=== PATIENT | female | born 1950 | race African-American/Black ===

== ENCOUNTER 2023-02-08 02:04 | Day surgery (SDC) | payer MEDICARE, SELFPAY ==
[2023-01-31 11:05] VITALS: BMI 24.8
--- NOTE | 2023-02-07 13:48 | PM.HPGS ---
History of Present Illness History of Present Illness Consent: Risks, benefits, and alternatives have been discussed and questions answered. Patient agrees to proceed with procedure. Chief complaint: disease of anus and rectum Narrative: Joshua Coronado is a 72 year old female Was referred for colonoscopy due to a possible anal mass. She also had a change in bowel habits with severe constipation lately. COUNTS INCLUDE 234 BEDS AT THE [facility] Family History Family History Mother Diabetes mellitus Depression Social History Social History Smoking status: Unknown if ever smoked Alcohol intake: current Alcohol use details: social Substance use: never Spiritual care concerns: No Meds Home Medications and Allergies Home Medications Medication Instructions Recorded Confirmed Type alendronate 70 mg tablet 70 mg PO WEEKLY 01/02/23 01/31/23 History aspirin 81 mg tablet,delayed 81 mg PO DAILY 01/02/23 01/31/23 History release cholecalciferol (vitamin D3) 25 25 mcg PO DAILY 01/02/23 01/31/23 History mcg (1,000 unit) capsule hydrochlorothiazide 25 mg tablet 25 mg PO DAILY 01/02/23 01/31/23 History losartan 100 mg tablet 100 mg PO DAILY 01/02/23 01/31/23 History metformin 500 mg tablet 500 mg PO DAILY 01/02/23 01/31/23 History naproxen 500 mg tablet 500 mg PO .PRN 01/02/23 01/31/23 History pravastatin 20 mg tablet 20 mg PO DAILY 01/02/23 01/31/23 History valacyclovir 1 gram tablet 1,000 mg PO DAILY 01/02/23 01/31/23 History Allergies Allergy/AdvReac Type Severity Reaction Status Date / Time No Known Allergies Allergy Verified 01/31/23 11:01 Assessment and Plan Assessment and plan (1) Anal lesion: Code(s): K62.9 - Disease of anus and rectum, unspecified Status: Acute Assessment and Plan: Colonoscopy with possible biopsy or polypectomy or cautery or injection of substances. (2) Personal history of colonic polyps: Code(s): Z86.010 - Personal history of colonic polyps Status: Acute
[2023-02-08 08:55] VITALS: BP 140/73; PULSE 65; RESP 18; TEMP 36.3; O2SAT 100
--- NOTE | 2023-02-08 08:56 | SUR.PREOP ---
0845: PT STATES SHE HAD [employer] CHOPS AT 6PM ON 02/07/23 THEN BEGAN THE BOWEL PREP. STOOLS ARE SEMI LIQUID, SEMI SOFT, AND BROWN. DR DODGE NOTIFIED AND CANCELLED PROCEDURE. PT DISCHARGED AND NOTIFIED TO RESCHEDULE PROCEDURE THROUGH DR DODGE'S OFFICE.
== END 2023-02-08 08:50 | disposition home or self-care (01) ==
PROVIDERS: Visit Provider Internal Medicine Gastroenterology
PROC: 0DJD8ZZ Inspection of Lower Intestinal Tract, Via Natural or Artificial Opening Endoscopic (ICD-10-PCS; CPT 45378; principal; 2023-02-08 09:45)
DX: K62.89 Other specified diseases of anus and rectum (principal); Z53.09 Procedure and treatment not carried out because of other contraindication
CPT/HCPCS: 99211; G0463

== ENCOUNTER 2023-02-21 02:41 | Day surgery (SDC) | payer MEDICARE, SELFPAY ==
[2023-02-09 14:58] VITALS: BMI 24.1
[2023-02-21 12:17] VITALS: BP 137/64; PULSE 70; RESP 16; TEMP 36.2; O2SAT 100; BMI 23.2
[2023-02-21] MEDS: LACTATED RINGERS 1,000 ML 150 ML IV CONT (12:31)
[2023-02-21 12:32] LABS: Glucose Point of Care 85 mg/dl (65-105)
--- NOTE | 2023-02-21 13:21 | P.HP_ITS ---
History of Present Illness History of Present Illness Consent: Risks, benefits, and alternatives have been discussed and questions answered. Patient agrees to proceed with procedure. Chief complaint: disease of anus and rectum Narrative: Joshua Coronado is a 72 year old female who was referred by her semiconductor packages leak tester because of the concern about prolapsing hemorrhoids versus possible anal mass. She has noted for least a year so that she would have a protrusion from her anus particularly after bowel movement.? Eventually would seem to go down.? She is not aware that she has hemorrhoids.? She denies seeing blood after bowel movement except on a rare occasion there might be a spot of blood on tissue.? She has had issues with constipation.? In the past she would be forced to strain at times. Review of Systems Review of Systems: All systems reviewed & are unremarkable except as noted in HPI and below PMFSH Family History Family History Mother Diabetes mellitus Depression Social History Social History Smoking status: Unknown if ever smoked Alcohol intake: current Alcohol use details: social Substance use: never Spiritual care concerns: No Meds Home Medications and Allergies Home Medications Medication Instructions Recorded Confirmed Type alendronate 70 mg tablet 70 mg PO WEEKLY 01/02/23 02/21/23 History aspirin 81 mg tablet,delayed 81 mg PO DAILY 01/02/23 02/21/23 History release cholecalciferol (vitamin D3) 25 25 mcg PO DAILY 01/02/23 02/21/23 History mcg (1,000 unit) capsule hydrochlorothiazide 25 mg tablet 25 mg PO DAILY 01/02/23 02/21/23 History losartan 100 mg tablet 100 mg PO DAILY 01/02/23 02/21/23 History metformin 500 mg tablet 500 mg PO DAILY 01/02/23 02/21/23 History naproxen 500 mg tablet 500 mg PO .PRN 01/02/23 02/21/23 History pravastatin 20 mg tablet 20 mg PO DAILY 01/02/23 02/21/23 History valacyclovir 1 gram tablet 1,000 mg PO DAILY 01/02/23 02/21/23 History Allergies Allergy/AdvReac Type Severity Reaction Status Date / Time No Known Allergies Allergy Verified 02/21/23 12:16 Vital Signs Vital Signs - 24 hr 02/21/23 12:17 Temperature 36.2 C L Pulse Rate 70 Respiratory Rate 16 Blood Pressure 137/64 Pulse Oximetry 100 Oxygen Delivery Room Air Exam Const: General: alert Orientation/consciousness: patient oriented x3 Resp: Auscultation: clear to auscultation bilaterally Cardio: Rhythm: regular rhythm GI: GI Palp: Yes Soft to palpation and No Tenderness to palpation present (GI) Neuro: General: patient oriented x3 Assessment and Plan Assessment and plan (1) Personal history of colonic polyps: Code(s): Z86.010 - Personal history of colonic polyps Status: Acute Assessment and Plan: Colonoscopy with possible biopsy or polypectomy or cautery or injection of substances. (2) Anal lesion: Code(s): K62.9 - Disease of anus and rectum, unspecified Status: Acute
--- NOTE | 2023-02-21 13:30 | WPDANESEPPF ---
Anes - Initial Pre Proc Eval Procedure: Operation Date: 02/21/23 13:30 Proposed Procedures p Colonoscopy - Del Moulton MD Date/Time: 02/21/23 13:30 Surgeon: Del Moulton MD Pre Op Diagnosis: disease of anus and rectum Patient Data Age: 72 Gender: F Height: 1.7 m Weight: 67.2 kg Last Vital Signs Temp 97.1 F L 02/21/23 12:17 Pulse 70 02/21/23 12:17 Resp 16 02/21/23 12:17 BP 137/64 02/21/23 12:17 Pulse Ox 100 02/21/23 12:17 O2 Del Method Room Air 02/21/23 12:17 Allergies Allergy/AdvReac Type Severity Reaction Status Date / Time No Known Allergies Allergy Verified 02/21/23 12:16 Home Medications Medication Instructions Recorded Confirmed Type alendronate 70 mg tablet 70 mg PO WEEKLY 01/02/23 02/21/23 History aspirin 81 mg tablet,delayed 81 mg PO DAILY 01/02/23 02/21/23 History release cholecalciferol (vitamin D3) 25 25 mcg PO DAILY 01/02/23 02/21/23 History mcg (1,000 unit) capsule hydrochlorothiazide 25 mg tablet 25 mg PO DAILY 01/02/23 02/21/23 History losartan 100 mg tablet 100 mg PO DAILY 01/02/23 02/21/23 History metformin 500 mg tablet 500 mg PO DAILY 01/02/23 02/21/23 History naproxen 500 mg tablet 500 mg PO .PRN 01/02/23 02/21/23 History pravastatin 20 mg tablet 20 mg PO DAILY 01/02/23 02/21/23 History valacyclovir 1 gram tablet 1,000 mg PO DAILY 01/02/23 02/21/23 History Laboratory Tests 02/21/23 12:24 POC Capillary Glucose 85 mg/dl (65-105) Patient hx anesthesia problems: none Family hx anesthesia problems: none Results Review: All pre-operative results and documents have been reviewed as part of the pre-operative evaluation. [facility] [place] Family History Family History Mother Diabetes mellitus Depression Social History Social History Smoking status: Unknown if ever smoked Alcohol intake: current Alcohol use details: social Substance use: never Spiritual care concerns: No Anes - Eval Final PreProcedure Day of Procedure 02/21/23 13:30 Patient weight: normal Heart: regular rate and rhythm Lungs: clear to auscultation Airway: Mallampati scale class II Neurological: alert and oriented Last oral intake: >/= 8 hours ASA classification: II Emergent: no Anesthetic plan: proceed Anesthesia type and monitoring: general GIVS and standard monitoring Results Review: All pre-operative results and documents have been reviewed as part of the pre-operative evaluation. Informed Consent: The patient's anesthetic plan and its attendant risks and benefits were discussed with the patient/family/POA. Questions were solicited and answers provided to the satisfaction of the patient/family/POA.
[2023-02-21 14:00] VITALS: BP 121/73; PULSE 70; RESP 18; O2SAT 100
[2023-02-21 14:10] VITALS: BP 120/71; PULSE 64; RESP 18; O2SAT 100
[2023-02-21 14:20] VITALS: BP 158/77; PULSE 61; RESP 18; O2SAT 100
== END 2023-02-21 14:30 | disposition home or self-care (01) ==
PROVIDERS: Visit Provider Internal Medicine Gastroenterology
PROC: 0DJD8ZZ Inspection of Lower Intestinal Tract, Via Natural or Artificial Opening Endoscopic (ICD-10-PCS; CPT 45378; principal; 2023-02-21 13:30)
DX: Z12.11 Encounter for screening for malignant neoplasm of colon (principal); K64.4 Residual hemorrhoidal skin tags; K64.8 Other hemorrhoids; K57.30 Diverticulosis of large intestine without perforation or abscess without bleeding; K63.89 Other specified diseases of intestine; Z86.010 Personal history of colon polyps; Z79.82 Long term (current) use of aspirin; Z79.84 Long term (current) use of oral hypoglycemic drugs
CPT/HCPCS: G0105; 82948; J2704; J7120